=== PATIENT | female | born 1965 | race Caucasian/White ===

== ENCOUNTER 2021-02-27 11:59 | Outpatient (CLI) | payer OTHER ==
[2021-02-27 13:39] LABS: Hemoglobin 12.4 g/dL (12.0-15.5); Mean Corpuscular HGB CONC 32.3 g/dL (32.0-36.0); Mean Platelet Volume 11.7 fl (7.4-10.4); Platelet Count 269 10x3/uL (150-450); RBC Distribution Width 13.9 % (11.5-14.5); Red Blood Cell (RBC) Count 3.88 10x6/uL (3.90-5.03); White Blood Cell (WBC) Count 7.2 10x3/uL (3.5-10.5)
[2021-02-27 14:48] LABS: Anion Gap 13 mmol/L (10-20); BUN (Urea Nitrogen) 7 mg/dL (9.8-20.1); Calc. Creatinine Clearance 0 mL/min (70-130); Calcium 9.4 mg/dL (7.8-10.44); Carbon Dioxide 28 mmol/L (22-29); Chloride 99 mmol/L (98-107); Glucose 84 mg/dL (70-105); Potassium 3.8 mmol/L (3.5-5.1); Sodium 136 mmol/L (136-145)
[2021-02-28 01:16] LABS: SARS-CoV-2 PCR by NAA Not Detected (NotDetected)
== END 2021-02-27 12:00 | disposition home or self-care (01) ==
LOC: LABBT 11:59
PROVIDERS: ATTEND Neurological Surgery
DX: Z01.818 Encounter for other preprocedural examination (principal); M54.16 Radiculopathy, lumbar region; Z20.822 Contact with and (suspected) exposure to COVID-19
CPT/HCPCS: 80048; 85027; 87635; 93005; 93010; U0003; U0005

== ENCOUNTER 2021-03-04 06:18 | Observation (INO) | payer OTHER ==
[2021-03-01 10:08] VITALS: BMI 29.9
[2021-03-04] MEDS ORDERED: Midazolam HCl 2 mg/2 ml Vial ONE (08:10)
[2021-03-04] MEDS ORDERED: Fentanyl 250 MCG/5 ML VIAL ONE (08:57)
[2021-03-04] MEDS ORDERED: Albuterol Sulfate HFA (OR ONLY) ONE (09:25)
[2021-03-04] MEDS ORDERED: PROPOFOL 200 MG/20 ML VIAL ONE (09:25)
[2021-03-04] MEDS ORDERED: Dexamethasone 20 MG/5 ML VIAL ONE (09:25)
[2021-03-04] MEDS ORDERED: Rocuronium Bromide 10 MG/ML (10ML VIAL) ONE (09:25)
[2021-03-04] MEDS ORDERED: PHENYLEPHRINE-NS 100 MCG/ML 10 ML SYRINGE ONE (09:25)
[2021-03-04] MEDS ORDERED: Lidocaine 1% PF 5 ML VIAL ONE (09:25)
[2021-03-04] MEDS ORDERED: Glycopyrrolate 0.2 MG/ML 5 ML SYRINGE ONE (09:25)
[2021-03-04] MEDS ORDERED: ePHEDrine Sulfate 50 MG/10 ML VIAL ONE (09:25)
[2021-03-04] MEDS ORDERED: Fentanyl 100 MCG/2 ML VIAL ONE ×2 (11:17→12:17)
[2021-03-04] MEDS ORDERED: Fluticasone Propionate Nasal Spray 16 gm Bottle NASAL PRN (11:36)
[2021-03-04] MEDS ORDERED: HYDROmorphone 0.5 MG/0.5 ML SYRINGE ONE ×3 (11:37→11:59)
[2021-03-04] MEDS ORDERED: HYDROcodone/Acetaminophen 10/325 mg Tablet PO PRN ×2 (11:37→12:00)
[2021-03-04] MEDS ORDERED: [UNRECOGNIZED DRUG - OTHER] SC SCH (11:45)
[2021-03-04] MEDS ORDERED: Promethazine 25 MG TAB PO SCH (11:45)
[2021-03-04] MEDS ORDERED: Ketorolac Tromethamine 10 MG TAB PO SCH (11:45)
[2021-03-04] MEDS ORDERED: predniSONE 50 MG TAB PO SCH (11:45)
[2021-03-04] MEDS ORDERED: Ondansetron PF 4 MG/2 ML Vial SLOW IVP PRN (11:47)
[2021-03-04] MEDS ORDERED: Ondansetron HCl/PF 4 MG/2 ML Vial IVP PRN (12:00)
[2021-03-04] MEDS ORDERED: Milk Of Magnesia 30 ML UDCUP PO PRN (12:00)
[2021-03-04] MEDS ORDERED: Morphine 2 MG/ML VIAL SLOW IVP PRN (12:00)
[2021-03-04] MEDS ORDERED: Promethazine 25 MG TAB PO PRN (12:00)
[2021-03-04] MEDS ORDERED: traMADol HCl 50 MG TAB PO PRN ×2 (12:00)
[2021-03-04] MEDS ORDERED: Mag-Al 1200 mg/1200 mg/30 ML UDCUP PO PRN (12:00)
[2021-03-04] MEDS ORDERED: diphenhydrAMINE 25 MG CAP PO PRN (12:00)
[2021-03-04] MEDS ORDERED: Promethazine HCl 25 MG/ML VIAL IM PRN (12:00)
[2021-03-04] MEDS ORDERED: diphenhydrAMINE 50 MG/ML VIAL IVP PRN (12:00)
[2021-03-04] MEDS ORDERED: Promethazine HCl 12.5 MG SUPP PR PRN (12:00)
[2021-03-04] MEDS ORDERED: Promethazine HCl 25 MG/ML VIAL IM/IV PRN (12:00)
[2021-03-04] MEDS ORDERED: Morphine 4 MG/ML VIAL ONE ×2 (14:24→16:40)
[2021-03-04] MEDS ORDERED: tiZANidine HCl 4 MG TAB ONE (14:32)
[2021-03-04] MEDS ORDERED: Gabapentin 300 MG CAP ONE (14:37)
[2021-03-04] MEDS ORDERED: Gabapentin 400 MG CAP PO SCH (15:00)
[2021-03-04] MEDS ORDERED: Gabapentin 300 MG CAP PO SCH (15:00)
[2021-03-04] MEDS ORDERED: CEVIMELINE 30 MG PO SCH (15:00)
[2021-03-04] MEDS ORDERED: HYDROcodone/Acetaminophen 10/325 mg Tablet ONE (15:46)
[2021-03-04] MEDS: tiZANidine HCl 4 MG TAB PO PRN ×2 (18:37→18:54)
[2021-03-04] MEDS: Sodium Chloride 0.9% 1,000 ML IV SCH (18:37)
[2021-03-04] MEDS ORDERED: Morphine 4 MG/ML VIAL SLOW IVP PRN ×2 (18:38)
[2021-03-04] MEDS: Mometasone 200 MCG/Formoterol 5 MCG 120 PUFF INHALER INH SCH (18:40)
[2021-03-04] MEDS ORDERED: Atorvastatin Calcium 10 MG TAB PO SCH (21:00)
[2021-03-04] MEDS ORDERED: rOPINIRole HCl 1 MG TAB PO SCH (21:00)
[2021-03-04] MEDS: sulfaSALAzine 500 MG TAB PO SCH (21:01)
[2021-03-04] MEDS: Gabapentin 300 MG CAP PO SCH ×2 (21:02→21:03)
[2021-03-04] MEDS: cycloSPORINE 0.05% Ophthalmic Droperette EA EYE SCH (22:00)
[2021-03-04] MEDS: Methocarbamol 500 MG TAB PO SCH (22:00)
[2021-03-04] MEDS: Hydroxychloroquine Sulfate 200 MG TAB PO SCH (22:00)
[2021-03-04] MEDS: Bupropion 100 MG SR TAB PO SCH (22:00)
[2021-03-04] MEDS: CEFAZOLIN 2 GM in Premix Bag 1 BAG IVPB SCH ×2 (22:35→22:36)
[2021-03-04] MEDS: HYDROcodone/Acetaminophen 10/325 mg Tablet PO PRN (22:44)
[2021-03-05] MEDS: Sodium Chloride 0.9% 1,000 ML IV SCH (03:57)
[2021-03-05] MEDS: HYDROcodone/Acetaminophen 10/325 mg Tablet PO PRN ×2 (05:55→09:15)
[2021-03-05] MEDS ORDERED: Tiotropium Bromide 4 GM INHALER IH SCH (07:00)
[2021-03-05] MEDS: Mometasone 200 MCG/Formoterol 5 MCG 120 PUFF INHALER INH SCH (07:22)
[2021-03-05 07:37] VITALS: BP 110/73; TEMP 97.6
[2021-03-05] MEDS ORDERED: Folic Acid 1 MG TAB PO SCH (09:00)
[2021-03-05] MEDS ORDERED: Oxybutynin ER 5 MG TAB PO SCH (09:00)
[2021-03-05] MEDS ORDERED: DULoxetine 60 MG CAP PO SCH (09:00)
[2021-03-05] MEDS: Gabapentin 300 MG CAP PO SCH (09:11)
[2021-03-05] MEDS: cycloSPORINE 0.05% Ophthalmic Droperette EA EYE SCH (09:14)
[2021-03-05] MEDS: sulfaSALAzine 500 MG TAB PO SCH (09:14)
[2021-03-05] MEDS: Hydroxychloroquine Sulfate 200 MG TAB PO SCH (09:15)
[2021-03-05] MEDS: Bupropion 100 MG SR TAB PO SCH (10:54)
[2021-03-05] MEDS: Methocarbamol 500 MG TAB PO SCH (10:57)
[2021-03-05] MEDS: tiZANidine HCl 4 MG TAB PO PRN (10:58)
== END 2021-03-05 12:00 | disposition home or self-care (01) ==
LOC: SDC 06:18 → T4-A 11:21
PROVIDERS: ADMIT Neurological Surgery; ATTEND Neurological Surgery
PROC: 0SG00AJ Fusion of Lumbar Vertebral Joint with Interbody Fusion Device, Posterior Approach, Anterior Column, Open Approach (ICD-10-PCS; principal; 2021-03-04)
PROC: 0SG30AJ Fusion of Lumbosacral Joint with Interbody Fusion Device, Posterior Approach, Anterior Column, Open Approach (ICD-10-PCS; 2021-03-04)
PROC: 0ST20ZZ Resection of Lumbar Vertebral Disc, Open Approach (ICD-10-PCS; 2021-03-04)
PROC: 0ST40ZZ Resection of Lumbosacral Disc, Open Approach (ICD-10-PCS; 2021-03-04)
DX: M47.26 Other spondylosis with radiculopathy, lumbar region (principal); M48.061 Spinal stenosis, lumbar region without neurogenic claudication; J43.9 Emphysema, unspecified; E78.5 Hyperlipidemia, unspecified; G47.30 Sleep apnea, unspecified; G43.909 Migraine, unspecified, not intractable, without status migrainosus; G25.81 Restless legs syndrome; M06.9 Rheumatoid arthritis, unspecified; G89.4 Chronic pain syndrome; Z87.891 Personal history of nicotine dependence; Z79.899 Other long term (current) drug therapy; Z88.1 Allergy status to other antibiotic agents; Z88.8 Allergy status to other drugs, medicaments and biological substances
CPT/HCPCS: 76000; 90471; 90732; 96365; 96375; 96376; C1713; C1768; G0009; G0378; J0690; J1100; J1170; J2250; J2270; J2704; J3010; J3370; J3490

== ENCOUNTER 2021-03-27 12:42 | Outpatient (CLI) | payer OTHER | END 2021-03-27 12:43 | disposition home or self-care (01) | LOC: TBSIIMAG 12:42 | PROVIDERS: ATTEND Neurological Surgery | DX: M47.26 Other spondylosis with radiculopathy, lumbar region (principal); Z98.890 Other specified postprocedural states | CPT/HCPCS: 72100 ==